=== PATIENT | female | born 1970 | race Caucasian/White ===

== ENCOUNTER 2019-12-04 08:51 | Emergency (ER) | payer OTHER, BC ==
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
[2019-12-04 11:00] VITALS: BP 132/79
== END 2019-12-04 10:50 | disposition home or self-care (01) ==
LOC: ED 08:51
DX: S39.012A Strain of muscle, fascia and tendon of lower back, initial encounter (principal); Z79.899 Other long term (current) drug therapy; V49.49XA Driver injured in collision with other motor vehicles in traffic accident, initial encounter; Y93.89 Activity, other specified; Y92.410 Unspecified street and highway as the place of occurrence of the external cause; Y99.8 Other external cause status
CPT/HCPCS: 99282